=== PATIENT | female | born 1955 | race Caucasian/White ===

== ENCOUNTER → 2016-05-16 | Outpatient (CLI) | payer OTHER | LOC: FIMAGING 18:47 | PROVIDERS: ATTEND Physician Assistant | DX: M50.31 Other cervical disc degeneration, high cervical region (principal); M51.36 Other intervertebral disc degeneration, lumbar region; M51.26 Other intervertebral disc displacement, lumbar region; M43.16 Spondylolisthesis, lumbar region ==

== ENCOUNTER 2017-03-08 10:50 | Emergency (ER) | payer OTHER ==
--- NOTE | 2017-03-08 11:03 | EDPHY ---
H & P Stated Complaint: R leg swelling, SOB s/p knee surgery Time Seen by Provider: 03/08/17 11:03 HPI/ROS: CHIEF COMPLAINT: Dyspnea, right greater than left leg swelling HISTORY OF PRESENT ILLNESS: The patient presents to the ED with several days of dyspnea and right greater than left leg swelling. The patient does have a remote history of bilateral knee arthroplasty. She did undergo liposuction to her bilateral lower extremities approximately 10 days ago. The patient denies pleuritic chest pain. She does report exertional dyspnea. She denies fever, cough or congestion. The patient denies prior history of PE or DVT. The patient does have some chronic pain in her lower extremities following surgery. REVIEW OF SYSTEMS: A comprehensive 10 point review of systems is otherwise negative aside from elements mentioned in the history of present illness. Source: Patient - Personal History Current Tetanus/Diphtheria Vaccine: Yes Current Tetanus Diphtheria and Acellular Pertussis (TDAP): Yes - Medical/Surgical History Hx Asthma: No Hx Chronic Respiratory Disease: No Hx Diabetes: No Hx Cardiac Disease: No Hx Renal Disease: No Hx Cirrhosis: No Hx Alcoholism: No Hx HIV/AIDS: No Hx Splenectomy or Spleen Trauma: No Other PMH: DJD, Bowel obstruction, gall bladder emoved 2013, knee scopes, adbominalplasty, bunyon surgery, endometrial ablasion, ovarian cyst, appendix, tonsilectomy, ACDF - Physical Exam Exam: General Appearance: Alert, no distress Eyes: Pupils equal and round no pallor or injection ENT, Mouth: Mucous membranes moist Respiratory: There are no retractions, lungs are clear to auscultation Cardiovascular: Tachycardic Gastrointestinal: Abdomen is soft and nontender, no masses, bowel sounds normal Neurological: A&O, normal motor function, normal sensory exam, normal cranial nerves Skin: Warm and dry, no rashes Musculoskeletal: Neck is supple nontender Extremities: Right greater than left lower extremity swelling, diffuse ecchymosis from surgery Constitutional: Initial Vital Signs Temperature (C) 37.2 C 03/08/17 10:57 Heart Rate 106 H 03/08/17 10:57 Respiratory Rate 20 03/08/17 10:57 Blood Pressure 117/82 H 03/08/17 10:57 O2 Sat (%) 98 03/08/17 10:57 O2 Delivery Mode Room Air O2 (L/minute) 2 Allergies/Adverse Reactions: [id number] Reductase Inhibitor Allergy (Verified 03/08/17 10:55) Home Medications: Medication Instructions Recorded Calcium Carbonate [Calcium] 500 mg PO DAILY 05/19/13 Lorazepam 2 mg PO HS 05/19/13 Pramipexole Di-HCl [Mirapex 0.25 0.5 mg PO HS 05/19/13 mg (RX)] QUEtiapine FUMARATE [Seroquel 200 200 mg PO HS 05/19/13 mg (RX)] Sertraline HCl [Zoloft 100mg (RX)] 100 mg PO HS 05/19/13 ZOLPIDEM TARTRATE [Ambien CR 12.5 12.5 mg PO HS 05/19/13 mg] Zolpidem Tartrate [Ambien 5MG (RX)] 5 mg PO HS 05/19/13 Gabapentin 03/08/17 Hydrocodone-Acetamin 5-325 mg 03/08/17 Magnesium 03/08/17 Meloxicam 03/08/17 Probiotic 03/08/17 Spironolactone 03/08/17 VITAMIN D 03/08/17 Medical Decision Making - Diagnostics Imaging Results: Imaging Impressions Chest/Thorax CTA 03/08/17 11:31 Impression: 1. No visible pulmonary embolus. 2. [4] mm likely benign right middle lobe nodule. If the patient is a smoker or is high risk, unenhanced low dose chest CT for follow up in 12 months is considered optional. Otherwise, no further follow up is needed per Fleischner Society criteria. 3. Additional findings as above. Findings discussed with Dr. Gamal Matthew on 03/08/2017 at 12:10. ED Course/Re-evaluation: The patient presents to the ED for evaluation of dyspnea and bilateral lower extremity swelling. The patient is noted to have fairly significant soft tissue swelling and ecchymosis noted on physical exam. The patient's EKG demonstrates no evidence of ischemia. The patient is moderate risk by Wells criteria she did have elevated D-dimer of 2.4. She was taken for CT pulmonary angiogram which demonstrated no evidence of PE. Given the lower extremity swelling bilaterally a bilateral lower extremity ultrasound has been ordered. The patient has superficial thrombophlebitis only. She will be advised to continue her meloxicam. The patient will have a repeat ultrasound in 2 weeks for any ongoing symptoms. I re-evaluated the patient at 1:15 p.m.. She will elevate her leg and use a compression stocking as needed. Continue NSAIDs and ice as needed for pain. Differential Diagnosis: Differential diagnosis considered includes pulmonary embolism, DVT, cellulitis, abscess, hematoma - Data Points Laboratory Results: Laboratory Results 03/08/17 11:26 03/08/17 11:26 03/08/17 03/08/17 03/08/17 11:26 11:26 11:26 WBC 7.36 10^3/uL 10^3/uL (3.80-9.50) RBC 3.24 10^6/uL L 10^6/uL (4.18-5.33) Hgb 10.4 g/dL L g/dL (12.6-16.3) POC Hgb Hct 30.4 % L % (38.0-47.0) POC Hct MCV 93.8 fL fL (81.5-99.8) MCH 32.1 pg pg (27.9-34.1) MCHC 34.2 g/dL g/dL (32.4-36.7) RDW 13.4 % % (11.5-15.2) Plt Count 319 10^3/uL 10^3/uL (150-400) MPV 9.2 fL fL (8.7-11.7) Neut % (Auto) 75.4 % H % (39.3-74.2) Lymph % (Auto) 15.5 % % (15.0-45.0) Holt % (Auto) 7.1 % % (4.5-13.0) Eos % (Auto) 0.7 % % (0.6-7.6) Baso % (Auto) 0.5 % % (0.3-1.7) Nucleat RBC Rel Count 0.3 % H % (0.0-0.2) Absolute Neuts (auto) 5.55 10^3/uL 10^3/uL (1.70-6.50) Absolute Lymphs (auto) 1.14 10^3/uL 10^3/uL (1.00-3.00) Absolute Monos (auto) 0.52 10^3/uL 10^3/uL (0.30-0.80) Absolute Eos (auto) 0.05 10^3/uL 10^3/uL (0.03-0.40) Absolute Basos (auto) 0.04 10^3/uL 10^3/uL (0.02-0.10) Absolute Nucleated RBC 0.02 10^3/uL H 10^3/uL (0-0.01) Immature Gran % 0.8 % % (0.0-1.1) Immature Gran # 0.06 10^3/uL 10^3/uL (0.00-0.10) PT 13.1 SEC SEC (12.0-15.0) INR 0.97 (0.83-1.16) D-Dimer 2.40 ug/mLFEU H ug/mLFEU (0.00-0.50) POC Sodium Sodium 143 mEq/L mEq/L (134-144) POC Potassium Potassium 4.2 mEq/L mEq/L (3.5-5.2) POC Chloride Chloride 110 mEq/L mEq/L (97-110) Carbon Dioxide 18 mEq/l L mEq/l (22-31) Anion Gap 15 mEq/L mEq/L (8-16) POC BUN BUN 19 mg/dL mg/dL (7-23) Creatinine 0.8 mg/dL mg/dL (0.6-1.0) POC Creatinine Estimated GFR > 60 Glucose 98 mg/dL mg/dL (70-100) POC Glucose Calcium 9.1 mg/dL mg/dL (8.5-10.4) Troponin I < 0.012 ng/mL ng/mL (0.000-0.034) 03/08/17 11:21 WBC RBC Hgb POC Hgb 10.5 gm/dL L gm/dL (12.6-16.3) Hct POC Hct 31 % L % (38-47) MCV MCH MCHC RDW Plt Count MPV Neut % (Auto) Lymph % (Auto) Holt % (Auto) Eos % (Auto) Baso % (Auto) Nucleat RBC Rel Count Absolute Neuts (auto) Absolute Lymphs (auto) Absolute Monos (auto) Absolute Eos (auto) Absolute Basos (auto) Absolute Nucleated RBC Immature Gran % Immature Gran # PT INR D-Dimer POC Sodium 141 mEq/L mEq/L (134-144) Sodium POC Potassium 4.0 mEq/L mEq/L (3.3-5.0) Potassium POC Chloride 109 mEq/L mEq/L (97-110) Chloride Carbon Dioxide Anion Gap POC BUN 21 mg/dL mg/dL (7-23) BUN Creatinine POC Creatinine 0.8 mg/dL mg/dL (0.6-1.0) Estimated GFR Glucose POC Glucose 102 mg/dL H mg/dL (70-100) Calcium Troponin I Medications Given: Discontinued Medications Rivaroxaban (Xarelto) 15 mg PO EDNOW ONE Stop: 03/08/17 13:11 Last Admin: 03/08/17 13:17 Dose: Not Given Point of Care Test Results: 03/08/17 11:21 POC Sodium 141 POC Potassium 4.0 POC Chloride 109 POC BUN 21 POC Creatinine 0.8 POC Glucose 102 H Departure - Departure Disposition: Home, Routine, Self-Care Clinical Impression: Superficial phlebitis Condition: Good Instructions: Superficial Thrombophlebitis (ED) Additional Instructions: 1. Please continue meloxicam. 2. Your ultrasound demonstrates no evidence of a DVT. 3. Repeat ultrasound in 2 weeks for any ongoing symptoms. Referrals: Maty Kessler MD [Primary Care Provider] - As per Instructions
--- NOTE | 2017-03-08 11:22 | CPEKG ---
Heart Rate: 96 RR Interval: 625 P-R Interval: 136 QRSD Interval: 78 QT Interval: 348 QTC Interval: 440 P Baldwin: 54 QRS Baldwin: 10 T Wave Baldwin: 35 EKG Severity - NORMAL ECG - EKG Impression: SINUS RHYTHM Electronically Signed By: Gamal Matthew 08-Mar-2017 13:24:15
[2017-03-08 11:38] LABS: PLATELET COUNT 319 10^3/uL (150-400)
[2017-03-08] MEDS ORDERED: IOPAMIDOL (ISOVUE 370) 100 ML BTL IV ONE (11:44)
[2017-03-08 11:49] LABS: INR 0.97 (0.83-1.16); PROTIME(PATIENT) 13.1 SEC (12.0-15.0)
[2017-03-08 13:03] VITALS: RESP 16; O2SAT 97
[2017-03-08] MEDS ORDERED: RIVAROXABAN 15 MG TAB PO ONE (13:10)
[2017-03-08 13:30] VITALS: BP 122/76; PULSE 89; TEMP 98.1
== END 2017-03-08 13:29 | disposition home or self-care (01) ==
DX: I80.02 Phlebitis and thrombophlebitis of superficial vessels of left lower extremity (principal)
CPT/HCPCS: 82947-QW; Q9967

== ENCOUNTER 2017-12-20 12:20 | Emergency (ER) | payer OTHER ==
--- NOTE | 2017-12-20 15:04 | EDPHY ---
H & P Time Seen by Provider: 12/20/17 14:29 HPI/ROS: CHIEF COMPLAINT: Right-sided rib pain HISTORY OF PRESENT ILLNESS: This 62-year-old woman started having right-sided pain after a water aerobics class 1 week ago. It is on the right side of her chest just below her breast and feels like"a rib is stabbing me in the lung." The symptoms have been getting worse over the past 5-6 days, worse with deep breathing or movement, also hurts going over bumps in the car. Symptoms moderate to severe. She takes meloxicam regularly. Not associated with shortness of breath or radiation or leg swelling or fever or chills or coughing. REVIEW OF SYSTEMS: Eye: no change in vision ENT: no sore throat Cardiac: HPI Pulmonary: no cough or SOB Abdomen: no vomiting, diarrhea, abdominal pain Musculoskeletal: HPI, no leg swelling Skin: no rash Neuro: no headache Constitutional: no fever : no urinary symptoms A comprehensive 10 point review of systems is otherwise negative aside from elements mentioned in the history of present illness. PAST MEDICAL HISTORY: Includes DJD, history of bowel obstruction. Cholecystectomy, abdominal plasty, endometrial ablation, appendectomy. Social history: Here with spouse General Appearance: Alert and conversant, cooperative. Eyes: No scleral icterus. ENT, Mouth: Normal mucous membranes. Respiratory: She is splinting somewhat, breath sounds are equal, no wheezing rhonchi or rales. No crepitus. Speaks in full sentences. Cardiovascular: Regular rate and rhythm. Gastrointestinal: Abdomen is soft and non tender. Neurological: Alert, face symmetric, normal motor and sensory in extremities. Skin: Warm and dry, no rashes. Musculoskeletal: No calf tenderness. She is point tender on her right chest just below her breast half-way between the midclavicular and midaxillary line. Psychiatric: Not agitated. Emergency Department course/MDM: 12-lead EKG interpreted by me; official reading is in computer system. My interpretation is sinus rhythm with low precordial voltage rate 81 otherwise negative. No ischemic changes. Discussion with the patient because of difficulty obtaining IV access. I told her I thought it was more likely she had a muscular or inflammatory problem than cardiac or PE. I think aneurysm would be unlikely. She has had a superficial thrombophlebitis on her leg before but no DVT or PE. She does not have family history of venous thromboembolism, no recent trauma or surgery or immobilization. Patient says she is okay with chest x-ray only, no D-dimer or further investigation for PE. She understands that we can't exclude this potentially life-threatening diagnosis without further testing which would involve IV/labs, she says she is fine with that. States she understands and accepts risks associated including morbidity and mortality. Plan for chest x-ray, discharge with symptomatic treatment if negative. Smoking Status: Never smoked Constitutional: Initial Vital Signs Temperature (C) 36.5 C 12/20/17 12:22 Heart Rate 90 12/20/17 12:22 Respiratory Rate 16 12/20/17 12:22 Blood Pressure 153/85 H 12/20/17 12:22 O2 Sat (%) 97 12/20/17 12:22 O2 Delivery Mode Room Air Allergies/Adverse Reactions: Feenmvq-Ofy-Amm Reductase Inhibitor Allergy (Verified 03/08/17 10:55) Home Medications: Medication Instructions Recorded Lorazepam 2 mg PO HS 05/19/13 Pramipexole Di-HCl [Mirapex 0.25 0.5 mg PO HS 05/19/13 mg (RX)] QUEtiapine FUMARATE [Seroquel 200 200 mg PO HS 05/19/13 mg (RX)] Sertraline HCl [Zoloft 100mg (RX)] 100 mg PO HS 05/19/13 ZOLPIDEM TARTRATE [Ambien CR 12.5 12.5 mg PO HS 05/19/13 mg] Zolpidem Tartrate [Ambien 5MG (RX)] 5 mg PO HS 05/19/13 Gabapentin 03/08/17 Magnesium 03/08/17 Meloxicam 03/08/17 Spironolactone 03/08/17 VITAMIN D 03/08/17 Cymbalta 12/20/17 Enbrel 12/20/17 Gabapentin 12/20/17 Hydrocodone/APAP 5/325 [[place] 1 tab PO Q4-6PRN PRN #11 tab 12/20/17 5/325] Magnesium 12/20/17 Melatonin 12/20/17 Meloxicam 12/20/17 Plaquenil 200 mg (*) 12/20/17 Medical Decision Making - Diagnostics Imaging Results: Imaging Impressions Chest X-Ray 12/20/17 14:53 Impression: Negative chest. Imaging: I viewed and interpreted images myself Differential Diagnosis: Differential diagnosis considered for chest pain including but not limited to myocardial ischemia, aortic dissection, pericarditis, pulmonary embolus, chest wall pain, pleural inflammation and pulmonary infectious causes. Departure - Departure Disposition: Home, Routine, Self-Care Clinical Impression: Chest wall pain Condition: Good Instructions: Hydrocodone/Acetaminophen (By mouth), Chest Pain (ED) Referrals: Maty Kessler MD [Primary Care Provider] - As per Instructions Prescriptions: Hydrocodone/APAP 5/325 [[place] 5/325] 1 tab PO Q4-6PRN PRN #11 tab PRN Reason: For Pain
--- NOTE | 2017-12-20 15:23 | CPEKG ---
Test Reason : OPEN Blood Pressure : / mmHG Vent. Rate : 081 BPM Atrial Rate : 082 BPM P-R Int : 141 ms QRS Dur : 087 ms QT Int : 401 ms P-R-T Axes : 042 010 053 degrees QTc Int : 466 ms Sinus rhythm Low voltage, precordial leads Confirmed by Tomi Jasmine ([id number]) on 12/20/2017 3:22:39 PM Referred By: Confirmed By:Tomi Jasmine
[2017-12-20 15:42] VITALS: BP 129/76
== END 2017-12-20 15:55 | disposition home or self-care (01) ==
DX: R07.89 Other chest pain (principal)

== ENCOUNTER → 2018-01-09 | Outpatient (CLI) | payer OTHER | LOC: CIMAGING 14:20 | PROVIDERS: ATTEND Family Medicine | DX: Z12.31 Encounter for screening mammogram for malignant neoplasm of breast (principal) ==

== ENCOUNTER → 2018-04-16 | Outpatient (CLI) | payer OTHER | LOC: CIMAGING 14:46 | PROVIDERS: ATTEND Family Medicine | DX: M54.2 Cervicalgia (principal); G89.28 Other chronic postprocedural pain; Z98.1 Arthrodesis status | CPT/HCPCS: 72040-PO ==

== ENCOUNTER → 2018-06-12 | Outpatient (CLI) | payer OTHER | LOC: CIMAGING 11:24 | PROVIDERS: ATTEND Neurological Surgery | DX: Z98.1 Arthrodesis status (principal); M43.12 Spondylolisthesis, cervical region | CPT/HCPCS: 72050-PO ==

== ENCOUNTER → 2018-07-05 | Outpatient (CLI) | payer OTHER | LOC: CIMAGING 13:13 ==

== ENCOUNTER → 2018-07-09 | Outpatient (CLI) | payer OTHER ==
[~2018-07-09] MED LIST: IOPAMIDOL (ISOVUE 370) 100 ML BTL IV ONE
== END ==
LOC: FIMAGING 12:41
PROVIDERS: ATTEND Neurological Surgery
DX: I65.22 Occlusion and stenosis of left carotid artery (principal); M47.892 Other spondylosis, cervical region; Z98.1 Arthrodesis status
CPT/HCPCS: Q9967

== ENCOUNTER 2018-07-17 05:53 | Observation (INO) | payer OTHER ==
[2018-07-17] MEDS ORDERED: ACETAMINOPHEN 500 MG TAB PO ONE (06:05)
[2018-07-17] MEDS ORDERED: GABAPENTIN 300 MG CAP PO ONE (06:05)
[2018-07-17] MEDS ORDERED: ceFAZolin 2 GM/DEXTROSE 100 ML IV ONE (06:05)
[2018-07-17] MEDS ORDERED: LIDOCAINE 1% 2 ML INJ ID PRN (06:07)
[2018-07-17] MEDS ORDERED: LR 1,000 ML IV ONE (06:07)
[2018-07-17] MEDS ORDERED: CHLORHEXIDINE GLUC HIBICLENS 118 ML BTL TP ONE (06:46)
[2018-07-17] MEDS ORDERED: BUPIVACAINE/EPI 0.25% 30 ML SDV ONE ×2 (06:46→07:43)
[2018-07-17] MEDS ORDERED: DEPO METHYLPREDNISOLONE 40 MG/ML SDV ONE (06:46)
[2018-07-17] MEDS ORDERED: THROMBIN (BOVINE) 5,000 UNIT VIAL TP ONE (06:46)
[2018-07-17] MEDS ORDERED: BACITRACIN 50,000 UNITS/10 ML SYR IRR ONE (06:47)
[2018-07-17] MEDS ORDERED: NS 500 ML IV PRN (06:48)
[2018-07-17] MEDS ORDERED: PROMETHAZINE HCL 25 MG/ML INJ IVP PRN (06:48)
[2018-07-17] MEDS ORDERED: MIDAZOLAM 2 MG/2 ML VIAL IVP ONE (06:48)
[2018-07-17] MEDS ORDERED: ONDANSETRON 4 MG/2 ML VIAL IVP PRN ×2 (06:48→08:13)
[2018-07-17] MEDS ORDERED: NALOXONE HCL 0.4 MG/ML INJ IVP PRN (06:48)
[2018-07-17] MEDS ORDERED: ALBUTEROL 3 ML DEYVIAL IH PRN (06:48)
[2018-07-17] MEDS ORDERED: oxyCODONE IR 5 MG TAB PO PRN (06:48)
[2018-07-17] MEDS ORDERED: PROPOFOL/EMULSION 500 MG/50 ML BOTTLE IV ONE ×3 (06:53→08:56)
[2018-07-17] MEDS ORDERED: REMIFENTANIL HCL 1 MG VIAL ONE ×3 (06:54→09:23)
[2018-07-17] MEDS ORDERED: ONDANSETRON 4 MG/2 ML VIAL ONE (07:08)
[2018-07-17] MEDS ORDERED: SUCCINYLCHOLINE CHLORIDE 200 MG/10 ML SYR IVP ONE (07:08)
[2018-07-17] MEDS ORDERED: DEXAMETHASONE 4 MG/ML VIAL ONE (07:08)
[2018-07-17] MEDS ORDERED: diphenhydrAMINE 25 MG CAP PO PRN (08:13)
[2018-07-17] MEDS ORDERED: HYDROmorphONE/DILAUDID 1 MG/ML INJ IVP PRN (08:13)
[2018-07-17] MEDS ORDERED: POLYETHYLENE GLYCOL 3350 17 GM PKT PO PRN (08:13)
[2018-07-17] MEDS ORDERED: LACTULOSE 20 GM/30 ML UDCUP PO PRN (08:13)
[2018-07-17] MEDS ORDERED: MAGNESIUM HYDROXIDE 30 ML UDCUP PO PRN (08:13)
[2018-07-17] MEDS ORDERED: ONDANSETRON DISINTEGRATING 4 MG TAB PO PRN (08:13)
[2018-07-17] MEDS ORDERED: BISACODYL 10 MG SUPP PR PRN (08:13)
[2018-07-17] MEDS ORDERED: NS 1,000 ML IV SCH (08:15)
[2018-07-17] MEDS ORDERED: HYDROCODONE/APAP 5/325 TAB PO PRN (08:18)
[2018-07-17] MEDS ORDERED: fentaNYL 100 MCG/2 ML INJ ONE ×3 (09:44→11:15)
[2018-07-17] MEDS ORDERED: HYDROmorphONE/DILAUDID 1 MG/ML INJ ONE ×2 (10:23→11:15)
[2018-07-17] MEDS: fentaNYL 100 MCG/2 ML INJ IVP PRN ×4 (10:25→12:34)
[2018-07-17] MEDS: HYDROmorphONE/DILAUDID 1 MG/ML INJ IVP PRN ×4 (10:27→11:44)
[2018-07-17] MEDS ORDERED: METHOCARBAMOL 750 MG TAB ONE (10:45)
[2018-07-17] MEDS: METHOCARBAMOL 750 MG TAB PO PRN ×3 (10:45→23:43)
[2018-07-17] MEDS ORDERED: LABETALOL HCL 5 MG/ML 20 ML MDV ONE (11:09)
[2018-07-17] MEDS: LABETALOL HCL 5 MG/ML 20 ML MDV IVP PRN ×2 (11:20→12:08)
[2018-07-17] MEDS ORDERED: oxyCODONE IR 5 MG TAB ONE (12:11)
[2018-07-17] MEDS ORDERED: HYDROCODONE/APAP 5/325 TAB PO SCH (14:00)
[2018-07-17] MEDS: FAMOTIDINE 20 MG TAB PO SCH ×2 (14:10→20:49)
[2018-07-17] MEDS: oxyCODONE IR 5 MG TAB PO PRN ×4 (14:14→22:10)
[2018-07-17] MEDS: ACETAMINOPHEN 500 MG TAB PO SCH ×2 (14:14→22:11)
[2018-07-17] MEDS: GABAPENTIN 300 MG CAP PO SCH ×2 (14:14→18:45)
[2018-07-17] MEDS: SERTRALINE HCL 100 MG TAB PO SCH (14:22)
[2018-07-17] MEDS: SENNOSIDES/DOCUSATE SODIUM TAB PO SCH ×2 (14:22→20:48)
[2018-07-17] MEDS ORDERED: PRAMIPEXOLE 0.25 MG TAB PO SCH (19:00)
[2018-07-17] MEDS ORDERED: LORazepam 1 MG TAB PO SCH (21:00)
[2018-07-17] MEDS ORDERED: GABAPENTIN 300 MG CAP PO SCH (21:00)
[2018-07-17] MEDS ORDERED: ZOLPIDEM TARTRATE 5 MG TAB PO SCH (21:00)
[2018-07-18] MEDS: METHOCARBAMOL 750 MG TAB PO PRN ×2 (05:37→14:13)
[2018-07-18] MEDS: oxyCODONE IR 5 MG TAB PO PRN ×5 (05:37→17:18)
[2018-07-18] MEDS: ACETAMINOPHEN 500 MG TAB PO SCH ×2 (07:10→15:45)
[2018-07-18] MEDS: SENNOSIDES/DOCUSATE SODIUM TAB PO SCH (09:20)
[2018-07-18] MEDS: FAMOTIDINE 20 MG TAB PO SCH (09:20)
[2018-07-18] MEDS: SERTRALINE HCL 100 MG TAB PO SCH (09:21)
[2018-07-18] MEDS: GABAPENTIN 300 MG CAP PO SCH (14:13)
[2018-07-20] MEDS ORDERED: ENOXAPARIN 40 MG/0.4 ML SYR SC SCH (09:00)
== END 2018-07-18 17:36 | disposition home or self-care (01) ==
DX: M47.22 Other spondylosis with radiculopathy, cervical region (principal); Z98.1 Arthrodesis status; G47.33 Obstructive sleep apnea (adult) (pediatric)
CPT/HCPCS: 63020; 76000; 97116; 97161; 97165; G0378

== ENCOUNTER → 2018-08-13 | Outpatient (CLI) | payer OTHER | LOC: CIMAGING 10:15 ==